=== PATIENT | male | born 1965 ===

== ENCOUNTER 2020-11-28 10:35 | Day surgery (SDC) | payer MEDICAID ==
[~2020-11-28] VITALS: Wt 75.8 kg
[2020-11-28] VITALS (11 sets, daily range): BP systolic 110–148; BP diastolic 60–101; PULSE 66–83; TEMP 98.3
[2020-11-28 12:02] LABS: HEMATOCRIT 43.3 % (42.0-52.0); HEMOGLOBIN 15.1 g/dl (13.5-18.0); MEAN CELL VOLUME 92 fl (80.0-100.0); MEAN CORPUSCULAR HEMOGLOBIN 32 pg (27.0-31.0); MEAN CORPUSCULAR HGB CONC 35 g/dl (33.0-37.0); MEAN PLATELET VOLUME 11.8 fl (7.4-10.4); PLATELET COUNT 190 K/mm3 (130-400); RED BLOOD COUNT 4.69 M/mm3 (4.20-5.60); REDCELL DISTRIBUTION WIDTH-CV 12.3 % (11.5-14.5)
[2020-11-28] MEDS ORDERED: LIPITOR 40MG TA40 MG PO (12:03)
[2020-11-28] MEDS ORDERED: ASPIRIN 81M81 MG/TA2 PO (12:03)
[2020-11-28] MEDS ORDERED: ENTRESTO 24 MG1 EACH PO (12:04)
[2020-11-28] MEDS ORDERED: ZESTRIL2.5 MG PO (12:04)
[2020-11-28 12:05] LABS: PROTHROMBIN TIME 11.1 SECONDS (9.7-12.8)
[2020-11-28 12:07] LABS: PARTIAL THROMBOPLASTIN TIME 33.5 SECONDS (26.0-37.0)
[2020-11-28 12:09] LABS: CALCIUM 9.4 mg/dL (8.4-10.2); CREATININE, serum 0.96 (0.66-1.25); POTASSIUM 4.2 mmol/L (3.4-5.0)
--- NOTE | 2020-11-28 12:28 | NUR ---
Pt to procedure,report to LOIS Dill.
--- NOTE | 2020-11-28 12:38 | NUR ---
SEE MERGE DOCUMENTATION FOR MEDICATION ADMINISTRATION AND INTRA/POST PROCEDURE SEDATION ASSESSMENTS.
--- NOTE | 2020-11-28 16:24 | NUR ---
Discharge instructions given to pt.pt verbalizes u nderstanding.INT removed,catheter tip intact.Pt escorted out via wheelchair by this nurse.
== END 2020-11-28 16:44 ==
LOC: COL.CAR 10:35
PROVIDERS: Internal Medicine Interventional Cardiology
DX: I25.10 Atherosclerotic heart disease of native coronary artery without angina pectoris (principal); I11.0 Hypertensive heart disease with heart failure; I50.20 Unspecified systolic (congestive) heart failure; E78.5 Hyperlipidemia, unspecified; F17.200 Nicotine dependence, unspecified, uncomplicated; Z95.810 Presence of automatic (implantable) cardiac defibrillator; Z95.1 Presence of aortocoronary bypass graft; Z79.82 Long term (current) use of aspirin; Z98.61 Coronary angioplasty status; Z79.899 Other long term (current) drug therapy
CPT/HCPCS: C1760; C1894; J1644; J2250; J3010; Q9967